=== PATIENT | female | born 1990 | race African-American/Black ===

== ENCOUNTER 2022-12-01 16:50 | Emergency (ER) | payer OTHER | END 2022-12-01 17:53 | disposition left against medical advice (07) | LOC: DL.ED 16:50 | DX: Z53.21 Procedure and treatment not carried out due to patient leaving prior to being seen by health care provider (principal) ==

== ENCOUNTER 2025-02-04 16:26 | Emergency (ER) | payer OTHER ==
[2025-02-04] MEDS: Lidocaine 1% 5 ML VIAL INJECT ONE (17:12)
[2025-02-04] MEDS: Bacitracin Oint 1 GM U/D Packet TOP ONE (17:12)
== END 2025-02-04 17:21 | disposition home or self-care (01) ==
LOC: DL.ED 16:26
DX: S91.311A Laceration without foreign body, right foot, initial encounter (principal); Z79.899 Other long term (current) drug therapy; Z79.4 Long term (current) use of insulin; Z90.49 Acquired absence of other specified parts of digestive tract; Z88.0 Allergy status to penicillin; Z88.1 Allergy status to other antibiotic agents; X58.XXXA Exposure to other specified factors, initial encounter
CPT/HCPCS: 12001; 73620; 99283; A9270; J2003

== ENCOUNTER 2025-02-12 11:25 | Emergency (ER) | payer OTHER ==
[2025-02-12] MEDS: Diphtheria,Pertussis(Acell),Tetanus Vaccine 0.5 ML Syringe IM ONE (12:00)
[2025-02-12] MEDS: Bacitracin Oint 1 GM U/D Packet TOP ONE (12:03)
== END 2025-02-12 12:10 | disposition home or self-care (01) ==
LOC: DL.ED 11:25
DX: S91.311D Laceration without foreign body, right foot, subsequent encounter (principal); Z23 Encounter for immunization; Z88.1 Allergy status to other antibiotic agents; Z88.0 Allergy status to penicillin; Z88.8 Allergy status to other drugs, medicaments and biological substances; Z79.899 Other long term (current) drug therapy; Z79.51 Long term (current) use of inhaled steroids; Z79.4 Long term (current) use of insulin; Z90.49 Acquired absence of other specified parts of digestive tract; X58.XXXD Exposure to other specified factors, subsequent encounter
CPT/HCPCS: 90471; 90715; 99282; A9270